=== PATIENT | female | born 1945 | race Caucasian/White ===

== ENCOUNTER 2017-04-02 15:42 | Inpatient (IN) | payer MEDICARE ==
[~2017-04-02] VITALS: Ht 144.8 cm; Wt 72.9 kg
[2017-04-02] VITALS (11 sets, daily range): BP systolic 121–199; BP diastolic 63–93; PULSE 51–99; RESP 16; TEMP 97.9–98.2; O2SAT 94–98
[~2017-04-02 15:42] MED LIST: ACYC400T PO; ALPR.5 PO; EPIP0.3I IM; GABA600T PO; HUMI40KI SQ; LEVO50TA4 PO; MILL5TAB PO; OLME1TAB PO; PARO40TA2 PO; PREDPOW34; PROT40TA PO
[2017-04-02] MEDS ORDERED: ASPIRIN 81 MG CHEW TAB PO STA (16:09)
[2017-04-02] MEDS ORDERED: SODIUM CHLOR 0.9% 1000 ML INJ 1,000 ML IV ONE (16:09)
[2017-04-02] MEDS ORDERED: HEPARIN SODIUM - IV 10,000 UNITS/10 ML VIAL IV PUSH STA (16:09)
[2017-04-02] MEDS ORDERED: NITROGLYCERIN 0.4 MG SL 25 TABS/BTL SL STA (16:09)
[2017-04-02] MEDS ORDERED: NITROGLYCERIN-D5W 50 MG/250 ML 250 ML IV PRN (16:15)
[2017-04-02] MEDS ORDERED: SODIUM CHLORIDE 0.9% FLUSH 10 ML FLUSH IVF PRN (16:15)
[2017-04-02 16:26] LABS: AUTOMATED NEUTROPHIL # 4.4 TH/MM3 (1.8-7.7); BASOPHIL % 0.5 % (0.0-2.0); EOSINOPHIL % 0.6 % (0.0-4.0); HEMATOCRIT 39.5 % (35.0-46.0); HEMO FLAGS DIFF FINAL; LYMPH % 21.8 % (9.0-44.0); LYMPHOCYTE # 1.3 TH/MM3 (1.0-4.8); MEAN CELL VOLUME 88.6 FL (80.0-100.0); MEAN CORPUSCULAR HEMOGLOBIN 28.5 PG (27.0-34.0); MEAN CORPUSCULAR HGB CONC 32.1 % (32.0-36.0); MONO % 5.9 % (0.0-8.0); NEUT % 71.2 % (16.0-70.0); PLATELET COUNT 205 TH/MM3 (150-450); RED BLOOD COUNT 4.46 MIL/MM3 (4.00-5.30); RED CELL DISTRIBUTION WIDTH 15.9 % (11.6-17.2); WHITE BLOOD COUNT 6.2 TH/MM3 (4.0-11.0)
[2017-04-02 16:27] LABS: I-STAT SODIUM 139 MMOL/L (138-146)
--- NOTE | 2017-04-02 16:27 | RADRPT ---
EXAM DATE/TIME: 04/02/2017 16:04 [place] COMPARISON: No previous studies available for comparison. INDICATIONS : Stemi alert. MEDICAL HISTORY : Chronic obstructive pulmonary disease. Hypertension Gastroesophageal reflux disease. SURGICAL HISTORY : Hysterectomy. ENCOUNTER: Initial ACUITY: 1 day PAIN SCORE: 7/10 LOCATION: Left upper chest FINDINGS: A single view of the chest demonstrates the lungs to be symmetrically aerated without evidence of mas s, infiltrate or effusion. The cardiomediastinal contours are unremarkable. Osseous structures are intact. CONCLUSION: Normal examination. Thom Haynes MD on April 02, 2017 at 16:25 Board Certified Radiologist. This report was verified electronically.
--- NOTE | 2017-04-02 16:29 | PD ---
HPI Chief Complaint: Chest Pain Time Seen by Provider: 15:55 Travel History International Travel<30 days: No Contact w/Intl Traveler<30days: No Traveled to known affect area: No History of Present Illness HPI This 71-year-old woman presents to the emergency department complaining of pressure-like chest discomfort. Symptoms been ongoing for the past 5 days or so. Symptoms are intermittent, worsening, and today were more severe and more constant. Describes pain as squeezing across her anterior chest. She denies any history of CAD. She sees Dr. Branch. She initially saw her for risk stratification presurgery. She states she has some shortness of breath with it. No nausea or vomiting. No other recent illness or injury. History Past Medical History Narrative Medical Asthma RA/OA Headache, migraines Hypothyroidism Tetanus Vaccination: Unknown Influenza Vaccination: Yes Social History Alcohol Use: Yes (OCCASIONALLY ) Tobacco Use: Yes Allergies-Medications (Allergen,Severity, Reaction): Coded Allergies: morphine (Unverified Allergy, Severe, RESP DISTRESS,SWELLING, 12/22/16) Reported Meds & Prescriptions Reported Meds & Active Scripts Active Benicar (Olmesartan) 20 Mg Tab 10 Mg PO DAILY Paroxetine (Paroxetine HCl) 40 Mg Tab 40 Mg PO DAILY Gabapentin 600 Mg Tab 600 Mg PO TID Acyclovir 400 Mg Tab 400 Mg PO 5 TIMES A DAY Levothyroxine (Levothyroxine Sodium) 50 Mcg Tab 50 Mcg PO DAILY Reported Xanax (Alprazolam) 0.5 Mg Tab 0.5 Mg PO Q8H PRN Millipred (Prednisolone) 5 Mg Tab 7 Mg PO Humira 2-Pack Inj (Adalimumab 2-Pack Inj) 40 Mg/0.8 Ml Syr 40 Mg SQ Q14D Humira 2-Pack Inj (Adalimumab 2-Pack Inj) 40 Mg/0.8 Ml Syr 40 Mg SQ Q7D Prednisolone (Prednisolone, Micronized) 5 Gm Powder 7 Mg DAILY Protonix (Pantoprazole Sodium) 40 Mg Tab 40 Mg PO BID Epipen 2-Isael Inj (Epinephrine) 0.3 Mg/0.3 Ml Pfpen 0.3 Mg IM ONCE PRN Review of Systems Except as stated in HPI: all other systems reviewed are Neg Physical Exam Narrative GENERAL: 71-year-old woman, uncomfortable and nontoxic. Hand on her chest. SKIN: Focused skin assessment warm/dry. ENT: No nasal bleeding or discharge. Mucous membranes pink and moist. NECK: Trachea midline. No JVD. CARDIOVASCULAR: Regular rate and rhythm. No murmur appreciated. RESPIRATORY: No accessory muscle use. Clear to auscultation. Breath sounds equal bilaterally. GASTROINTESTINAL: Abdomen soft, non-tender, nondistended. Hepatic and splenic margins not palpable. MUSCULOSKELETAL: No obvious deformities. No edema. NEUROLOGICAL: Awake and alert. No obvious cranial nerve deficits. Motor grossly within normal limits. Normal speech. PSYCHIATRIC: Appropriate mood and affect; insight and judgment normal. Data Data Last Documented VS Vital Signs Date Time Temp Pulse Resp B/P (MAP) Pulse Ox O2 Delivery O2 Flow Rate FiO2 04/02/17 17:45 76 16 121/68 (85) 98 Room Air 04/02/17 15:45 97.9 Orders Orders Troponin I (04/02/17 16:09) Ckmb (Isoenzyme) Profile (04/02/17 16:09) Complete Blood Count With Diff (04/02/17 16:09) I-Stat Profile (04/02/17 16:09) I-Stat Creatinine (04/02/17 16:09) Calcium (04/02/17 16:09) Magnesium (Mg) (04/02/17 16:09) Prothrombin Time / Inr (Pt) (04/02/17 16:09) Act Partial Throm Time (Ptt) (04/02/17 16:09) B-Type Natriuretic Peptide (04/02/17 16:09) Chest, Single Ap (04/02/17 16:09) Electrocardiogram (04/02/17 16:09) Oxygen Administration (04/02/17 16:09) Iv Access Insert/Monitor (04/02/17 16:09) Oximetry (04/02/17 16:09) Sodium Chlor 0.9% 1000 Ml Inj (Ns 1000 M (04/02/17 16:09) Sodium Chloride 0.9% Flush (Ns Flush) (04/02/17 16:15) Aspirin Chew (Aspirin Chew) (04/02/17 16:09) Nitroglycerin Sl (Nitrostat Sl) (04/02/17 16:09) Nitroglycerin-D5w 50 Mg/250 Ml (Nitrogly (04/02/17 16:15) Heparin Inj (Heparin Inj) (04/02/17 16:09) CKMB (04/02/17 16:05) CKMB% (04/02/17 16:05) Consult Cardiology (04/02/17 ) Admit Order (Ed Use Only) (04/02/17 ) Labs Laboratory Tests Test 04/02/17 16:05 White Blood Count 6.2 TH/MM3 Red Blood Count 4.46 MIL/MM3 Hemoglobin 12.7 GM/DL Bedside Hemoglobin 13.6 G/DL Hematocrit 39.5 % Bedside Hematocrit 40.0 % Mean Corpuscular Volume 88.6 FL Mean Corpuscular Hemoglobin 28.5 PG Mean Corpuscular Hemoglobin Concent 32.1 % Red Cell Distribution Width 15.9 % Platelet Count 205 TH/MM3 Mean Platelet Volume 8.3 FL Neutrophils (%) (Auto) 71.2 % Lymphocytes (%) (Auto) 21.8 % Monocytes (%) (Auto) 5.9 % Eosinophils (%) (Auto) 0.6 % Basophils (%) (Auto) 0.5 % Neutrophils # (Auto) 4.4 TH/MM3 Lymphocytes # (Auto) 1.3 TH/MM3 Monocytes # (Auto) 0.4 TH/MM3 Eosinophils # (Auto) 0.0 TH/MM3 Basophils # (Auto) 0.0 TH/MM3 CBC Comment DIFF FINAL Differential Comment Prothrombin Time 10.5 SEC Prothromb Time International Ratio 1.0 RATIO Activated Partial Thromboplast Time 25.4 SEC Bedside Sodium 139 MMOL/L Bedside Potassium 4.0 MMOL/L Bedside Chloride 100 MMOL/L Bedside Blood Urea Nitrogen 13 MG/DL Bedside Creatinine 1.0 MG/DL Bedside Glucose 142 MG/DL Calcium Level 8.3 MG/DL Magnesium Level 2.2 MG/DL Total Creatine Kinase 103 U/L Creatine Kinase MB 3.2 NG/ML Troponin I 0.79 NG/ML B-Type Natriuretic Peptide 307 PG/ML [facility] Medical Decision Making Medical Screen Exam Complete: Yes Emergency Medical Condition: Yes Interpretation(s) My review of EKG: Minimal ST elevations in the inferior leads, but 1 mm in lead 3, less in aVF, what appear to be reciprocal depressions in 1 and aVL with T- wave inversions and mild ST depressions, as well as lateral T wave inversions in the precordial leads. My review of repeat EKG, 1621, no significant change. May be slightly diminished ST elevations, LABS: CBC unremarkable. Clinic your chemistries are unremarkable. Troponin 0.79 BNP is 307 Coags unremarkable. Chest x-ray: Normal examination. Differential Diagnosis MT, ACS, dissection, PE, anxiety, other Narrative Course Medical decision making INITIAL: This 71-year-old woman presents to the emergency department complaining of intermittent pressure-like chest discomfort for the past 5 days, ongoing worsens this morning. EKG is suggestive of myocardial ischemia with ST elevations inferiorly, lateral ST depressions with T-wave inversions that could be reciprocal changes. STEMI alert was called at 1600 on my viewing EKG. Spoke with Dr. Johnson. As requested, I I sent copies of EKG for him to review. Feels EKG changes are somewhat equivocal and would like a repeat EKG. Given the worsening elevations in 3 compared aVF, will do right sided EKG as well. We 'll start aspirin, nitroglycerin, heparin, reassess. FINAL: Repeat EKG shows no worsening evidence of STEMI. Spoke with cardiology. EKG does not meet criteria for STEMI activation. We'll treat medical management for acute coronary syndrome, continue to monitor, repeat enzymes, repeat EKG, admission to the [facility]. Critical Care Narrative Aggregate critical care time was 35 minutes. Time to perform other separately billable procedures was not included in the critical care time. My time did not include minutes spent treating any other patients simultaneously or on activities that did not directly contribute to the patient's treatment. The services I provided to this patient were to treat and/or prevent clinically significant deterioration that could result in: , MT, heart failure, severe morbidity. I provided critical care services requiring my management, as noted below: Chart data review, documentation time, medication orders and management, vital sign assessments/reviewing monitor data, ordering and reviewing lab tests, ordering and interpreting/reviewing x-rays and diagnostic studies, care of the patient and discussion of the patient with the admitting physicians. Diagnosis Primary Impression: ACS (acute coronary syndrome) Admitting Information Admitting Physician Requests: Admit Thom Ortiz MD Apr 02, 2017 16:29
[2017-04-02 16:35] LABS: APTT (PATIENT) 25.4 SEC (24.3-30.1); PROTHROMBIN TIME - PATIENT 10.5 SEC (9.8-11.6)
[2017-04-02 17:08] LABS: MAGNESIUM 2.2 MG/DL (1.5-2.5)
[2017-04-02 17:33] LABS: CREATINE KINASE 103 U/L (26-192)
[2017-04-02 17:49] LABS: CKMB 3.2 NG/ML (0.5-3.6)
[2017-04-02] MEDS ORDERED: MAGNESIUM HYDROXIDE SUSP 30 ML CUP PO PRN (18:15)
[2017-04-02] MEDS ORDERED: SENNOSIDES 8.6 MG TAB PO PRN (18:15)
[2017-04-02] MEDS ORDERED: NALOXONE HCL 0.4 MG/ML AMP IV PUSH PRN (18:15)
[2017-04-02] MEDS ORDERED: HEPARIN-D5W 25,000 U/250 ML 250 ML IV PRN ×2 (18:15→20:00)
[2017-04-02] MEDS ORDERED: BISACODYL 10 MG SUPP RECTAL PRN (18:15)
[2017-04-02] MEDS ORDERED: LACTULOSE SYRUP 20 GM/30 ML CUP PO PRN (18:15)
[2017-04-02] MEDS ORDERED: SODIUM CHLORIDE 0.9% FLUSH 10 ML FLUSH IV FLUSH PRN (18:15)
[2017-04-02] MEDS ORDERED: predniSONE 10 MG TAB PO ONE (19:00)
--- NOTE | 2017-04-02 19:03 | HHI.HP ---
[facility] Service [facility] Primary Care Physician Janelle Medrano MD Admission Diagnosis ACS/DE Diagnoses: (1) NSTEMI (non-ST elevated myocardial infarction) Diagnosis: Principal (2) HTN (hypertension) Diagnosis: Principal (3) Hyperglycemia Diagnosis: Principal (4) Rheumatoid arthritis Diagnosis: Principal (5) Tobacco abuse Diagnosis: Principal Travel History International Travel<30 Days: No Contact w/Intl Traveler <30 Da: No Traveled to Known Affected Are: No History of Present Illness This is a 71-year-old female with a PMH of HTN, Hypothyroidism, Asthma and Rheumatoid Arthritis on Chronic Steroids who presented to the ER w/ c/o chest pain for approx 4-5 days. States pain has been intermittent, however today pain more constant. Following w/ Dr. Branch as outpatient. Denies fever, chills, cough or SOB. On arrival, BP 199/93, HR 99, O2 sat 96% on RA, Afebrile. CBC unremarkable. Chemistry essentially unremarkable except for hyperglycemia, BS 142. Troponin 0.79. EKG with no acute ischemia. BNP 307. INR 1.0. CXR with no acute findings. Dr. Johnson consulted by ER physician, pt started on Heparin/NTG gtt in ER. Plan for Cath in am if chest pain persists. Review of Systems Except as stated in HPI: all other systems reviewed are Neg ROS: 14 point review of systems otherwise negative. Past Family Social History Past Medical History PMH: HTN, Hypothyroidism, Asthma and Rheumatoid Arthritis on Chronic Steroids Past Surgical History PAST SURGICAL HISTORY: Sinus Surgery, Craniotomy, Partial Colectomy, Hernia Repair, Hysterectomy with Left Knee Arthroscopy, Bladder Surgery, Right Elbow Surgery Allergies: Coded Allergies: morphine (Unverified Allergy, Severe, RESP DISTRESS,SWELLING, 12/22/16) Family History PAST FAMILY HISTORY: Reviewed, positive for DM and CAD. Social History PAST SOCIAL HISTORY: Occasional alcohol. Positive for tobacco. [place] for drugs. Physical Exam Vital Signs Vital Signs Date Time Temp Pulse Resp B/P (MAP) Pulse Ox O2 Delivery O2 Flow Rate FiO2 04/02/17 17:45 76 16 121/68 (85) 98 Room Air 04/02/17 17:15 83 16 141/65 (90) 98 Room Air 04/02/17 16:45 77 16 133/63 (86) 98 Room Air 04/02/17 16:30 90 180/78 04/02/17 16:15 78 16 145/67 (93) 97 Room Air 04/02/17 16:00 98 Room Air 04/02/17 16:00 98 Room Air 04/02/17 15:52 90 18 96 Room Air 04/02/17 15:45 97.9 99 16 199/93 (128) 96 Physical Exam PE: GENERAL: Pleasant elderly white female in no acute distress. HEENT: PERRLA, EOMI. No scleral icterus or conjunctival pallor. No lid lag or facial droop. CARDIOVASCULAR: Regular rate and rhythm. No obvious murmurs to auscultation. No chest tenderness to palpation. RESPIRATORY: No obvious rhonchi or wheezing. Clear to auscultation. Breath sounds equal bilaterally. GASTROINTESTINAL: Abdomen soft, non-tender, nondistended. BS normal. MUSCULOSKELETAL: Extremities without clubbing, cyanosis, or edema. No obvious deformities. NEUROLOGICAL: Awake, alert and oriented x4. No focal neurologic deficits. Moving both upper and lower extremities spontaneously. Laboratory Laboratory Tests Test 04/02/17 16:05 White Blood Count 6.2 Red Blood Count 4.46 Hemoglobin 12.7 Bedside Hemoglobin 13.6 Hematocrit 39.5 Bedside Hematocrit 40.0 Mean Corpuscular Volume 88.6 Mean Corpuscular Hemoglobin 28.5 Mean Corpuscular Hemoglobin Concent 32.1 Red Cell Distribution Width 15.9 Platelet Count 205 Mean Platelet Volume 8.3 Neutrophils (%) (Auto) 71.2 Lymphocytes (%) (Auto) 21.8 Monocytes (%) (Auto) 5.9 Eosinophils (%) (Auto) 0.6 Basophils (%) (Auto) 0.5 Neutrophils # (Auto) 4.4 Lymphocytes # (Auto) 1.3 Monocytes # (Auto) 0.4 Eosinophils # (Auto) 0.0 Basophils # (Auto) 0.0 CBC Comment DIFF FINAL Differential Comment Prothrombin Time 10.5 Prothromb Time International Ratio 1.0 Activated Partial Thromboplast Time 25.4 Bedside Sodium 139 Bedside Potassium 4.0 Bedside Chloride 100 Bedside Blood Urea Nitrogen 13 Bedside Creatinine 1.0 Bedside Glucose 142 Calcium Level 8.3 Magnesium Level 2.2 Total Creatine Kinase 103 Creatine Kinase MB 3.2 Troponin I 0.79 B-Type Natriuretic Peptide 307 Result Diagram: 04/02/17 1605 Caprini VTE Risk Assessment Caprini VTE Risk Assessment: Mod/High Risk (score >= 2) Caprini Risk Assessment Model Point Value = 1 Point Value = 2 Point Value = 3 Point Value = 5 Age 41-60 Minor surgery BMI > 25 kg/m2 Swollen legs Varicose veins or History of unexplained or recurrent spontaneous Oral contraceptives or hormone replacement Sepsis (< 1 month) Serious lung disease, including pneumonia (< 1 month) Abnormal pulmonary function Acute myocardial infarction Congestive heart failure (< 1 month) History of inflammatory bowel disease Medical patient at bed rest Age 61-74 Arthroscopic surgery Major open surgery (> 45 min) Laparoscopic surgery (> 45 min) Malignancy Confined to bed (> 72 hours) Immobilizing plaster cast Central venous access Age >= 75 History of VTE Family history of VTE Factor V Leiden Prothrombin [id number] Lupus anticoagulant Anticardiolipin antibodies Elevated serum homocysteine Heparin-induced thrombocytopenia Other congenital or acquired thrombophilia Stroke (< 1 month) Elective arthroplasty Hip, pelvis, or leg fracture Acute spinal cord injury (< 1 month) Prophylaxis Regimen Total Risk Factor Score Risk Level Prophylaxis Regimen 0-1 Low Early ambulation 2 Moderate Order ONE of the following: *Sequential Compression Device (SCD) *Heparin 5000 units SQ BID 3-4 Higher Order ONE of the following medications: *Heparin 5000 units SQ TID *Enoxaparin/Lovenox 40 mg SQ daily (WT < 150 kg, CrCl > 30 mL/min) *Enoxaparin/Lovenox 30 mg SQ daily (WT < 150 kg, CrCl > 10-29 mL/min) *Enoxaparin/Lovenox 30 mg SQ BID (WT < 150 kg, CrCl > 30 mL/min) AND/OR *Sequential Compression Device (SCD) 5 or more Highest Order ONE of the following medications: *Heparin 5000 units SQ TID (Preferred with Epidurals) *Enoxaparin/Lovenox 40 mg SQ daily (WT < 150 kg, CrCl > 30 mL/min) *Enoxaparin/Lovenox 30 mg SQ daily (WT < 150 kg, CrCl > 10-29 mL/min) *Enoxaparin/Lovenox 30 mg SQ BID (WT < 150 kg, CrCl > 30 mL/min) AND *Sequential Compression Device (SCD) Assessment and Plan Problem List: (1) NSTEMI (non-ST elevated myocardial infarction) ICD Code: I21.4 - Non-ST elevation (NSTEMI) myocardial infarction (2) HTN (hypertension) ICD Code: I10 - Essential (primary) hypertension (3) Hyperglycemia ICD Code: R73.9 - Hyperglycemia, unspecified (4) Rheumatoid arthritis ICD Code: M06.9 - Rheumatoid arthritis, unspecified (5) Tobacco abuse ICD Code: Z72.0 - Tobacco use Assessment and Plan A/P: 1. NSTEMI: chest pain x4-5 days, now constant, some improvement w/ NTG. Trop 0.79, EKG w/ no acute ischemia. Follows w/ Dr. Branch as outpatient, Dr. Johnson consulted, recommended Heparin/NTG gtt, likely Cath in am. Check serial cardiac enzymes, ASA, Metoprolol, Statin. Continue NTG/Heparin gtt. CXR w/ no acute findings, images reviewed by me. 2. Hyperglycemia: BS 142, on chronic steroids. Check Hgb A1c, start Insulin Sliding Scale w/ Accu-Cheks. 3. HTN: BP 199 systolic on arrival, likely compounded by chest pain, currently 121/68, HR 76. Will monitor. Start Metoprolol. 4. Rheumatoid Arthritis: Chronic. On Chronic Steroid therapy, continue home medications, monitor BS as above. 5. Tobacco Abuse: Pt counselled. Ativan prn, no NicoDerm to avoid vasoconstriction. 6. DVT Prophylaxis: Heparin gtt 7. Social work for d/c planning as needed. 8. Case discussed w/ ER physician at length. Physician Certification 2 Midnight Certification Type: Admission for Inpatient Services Order for Inpatient Services The services are ordered in accordance with Medicare regulations or non- Medicare payer requirements, as applicable. In the case of services not specified as inpatient-only, they are appropriately provided as inpatient services in accordance with the 2-midnight benchmark. Estimated LOS (days): 2 days is the estimated time the patient will need to remain in the hospital, assuming treatment plan goals are met and no additional complications. Post-Hospital Plan: Not yet determined Britany Ga MD Apr 02, 2017 19:03
[2017-04-02] MEDS ORDERED: ONDANSETRON HCL 4 MG/2 ML VIAL IVP PRN (19:45)
[2017-04-02] MEDS ORDERED: ACETAMINOPHEN 325 MG TAB PO PRN (19:45)
[2017-04-02] MEDS ORDERED: HYDROmorphone HCL PF 1 MG/ML VIAL IV PUSH PRN (19:45)
[2017-04-02] MEDS ORDERED: GLUCAGON 1 MG/ML VIAL OTHER PRN (20:00)
[2017-04-02] MEDS ORDERED: DEXTROSE 50% IN WATER 50 ML VIAL(D50) IV PUSH PRN (20:00)
[2017-04-02] MEDS: ACETAMINOPHEN/HYDROcodone 325 MG/5 MG TAB PO PRN (20:53)
[2017-04-02] MEDS: ALPRAZolam 0.5 MG TAB PO PRN (20:54)
[2017-04-02] MEDS: DOCUSATE SODIUM 50 MG/SENNA 8.6 MG TAB PO SCH (20:54)
[2017-04-02] MEDS: PANTOPRAZOLE SOD 40 MG DELAYED RELEASE TAB PO SCH (20:54)
[2017-04-02] MEDS: INSULIN ASPART SUPPLEMENTAL SCALE SQ SCH (21:00)
[2017-04-02] MEDS: SODIUM CHLORIDE 0.9% FLUSH 10 ML FLUSH IV FLUSH SCH (21:00)
[2017-04-02] MEDS: METOPROLOL TARTRATE 25 MG TAB PO SCH (21:22)
--- NOTE | 2017-04-02 21:33 | MB ---
cc: DOROTHY MITCHELL DATE OF CONSULTATION 04/02/17 1943 REASON FOR CONSULTATION Chest pain. HISTORY OF PRESENT ILLNESS 71-year-old female with a past medical history significant for CAD, hypertension , hypothyroidism, rheumatoid arthritis that presents to the emergency department for evaluation of chest pain. She reports that she has been having chest pressure since Wednesday. However, she was hesitant to present to the PCP's office however, today this morning while in the bathroom she had an acute onset of chest pressure localizing to the sternal region, nonradiating that was not relieved by aspirin for which she asked her to take her to the emergency department. In the emergency department, EKG revealed sinus rhythm with T-wave inversions in the lateral leads and troponin came up elevated at 0.79. The patient was started on a heparin drip and nitro and she was admitted to the PCCU for further management and evaluation. Currently, she remains chest pain free. Denies nausea, vomiting, diarrhea, shortness of breath, PND, diaphoresis or leg edema, palpitations or syncope. She has been followed by Dr. Branch. Before Dr. Branch, she was followed by Dr. Murry who performed in 2015 a stress test which showed a reversible defect in the lateral wall with a preserved ejection fraction of 60%. At that time, the patient refused a coronary angiogram. On subsequent visits with Dr. Branch per notes, the patient continues refusing any type of invasive cardiac workup. REVIEW OF SYSTEMS Negative except for what is mentioned in HPI. PAST MEDICAL HISTORY 1. CAD with positive stress test in 2015, 2. Asthma 3. Rheumatoid arthritis 4. Headache, 5. Migraines, 6. Hypothyroidism, 7. Hypertension, PAST SURGICAL HISTORY None SOCIAL HISTORY Occasional alcohol use. Denies illicit drug use. Positive smoker. FAMILY HISTORY Positive for CAD MEDICATIONS Home medications 1. Acyclovir 2. Humira. 3. Xanax, 4. Neurontin 5. Levothyroxine. 6. Benicar 7. Protonix, 8. Paroxetine. 9. Prednisolone. PHYSICAL EXAMINATION VITAL SIGNS: Temperature 97.9, heart rate 76, respiratory rate 16, blood pressure 121/68, O2 sat 98% room air. GENERAL: She is awake, alert, oriented x3 in no acute distress. NECK: No JVD, no carotid bruits. HEART: Regular rate and rhythm. No murmurs, rubs or gallops appreciated. LUNGS: Clear to auscultation bilaterally. No wheezes or rhonchi or rales. ABDOMEN: Obese. Positive bowel sounds, soft, nontender, nondistended. EXTREMITIES: No cyanosis or edema. Pulses throughout. LABORATORY DATA CBC - hemoglobin 12, hematocrit 39, platelet count 205, INR 1.0. Electrolytes - sodium 139, potassium 4.0, BUN 13, creatinine 1.0, calcium 8.3, magnesium 2.2, troponin 0.79. BNP 307. IMAGING STUDIES Chest x-ray - no acute cardiopulmonary process. CARDIOLOGY STUDIES EKG - sinus rhythm with T-wave inversions in the lateral leads. ASSESSMENT/PLAN 71-year-old female with known coronary artery disease, however, no invasive cardiac workup admitted today with a [id number] MD. Currently, she remains afebrile, hemodynamically stable and chest pain free. She has been started on heparin drip and nitro drip with relief of symptoms. EKGs showed no ST elevation MD rather T-wave inversion. Her JAMEE risk score is 4 and Killip class I. At this point, I think it would be reasonable to pursue left heart cath to better assess progression of coronary artery disease. After a thorough explanation including risks of left heart cath/PCI including but not limited to neurovascular trauma, acute kidney injury, bleeding, infection, stroke, arrhythmia, emergent bypass surgery, and she agrees to have it done. The patient understands risks and she is willing to proceed. Plan: -Keep NPO after midnight -Left heart cath possible PCI in AM -Cont Heparin drip -Aggressive medical management for CAD Thank you for the opportunity to take part in the care of this patient. Further management to be determined. Dorothy Mitchell MD, MPH, [facility]/SA /8:54 PM /9:20 PM ALEM
[2017-04-02 22:05] LABS: HEMATOCRIT 34.6 % (35.0-46.0); MEAN CELL VOLUME 88.8 FL (80.0-100.0); MEAN CORPUSCULAR HEMOGLOBIN 28.5 PG (27.0-34.0); MEAN CORPUSCULAR HGB CONC 32.1 % (32.0-36.0); PLATELET COUNT 184 TH/MM3 (150-450); RED BLOOD COUNT 3.89 MIL/MM3 (4.00-5.30); RED CELL DISTRIBUTION WIDTH 15.8 % (11.6-17.2); REVIEW FLAG FINAL; WHITE BLOOD COUNT 6.9 TH/MM3 (4.0-11.0)
[2017-04-03] VITALS (29 sets, daily range): BP systolic 118–170; BP diastolic 59–80; PULSE 47–77; RESP 16–20; TEMP 97.6–98.1; O2SAT 95–99
[2017-04-03] MEDS: ACETAMINOPHEN/HYDROcodone 325 MG/5 MG TAB PO PRN ×5 (00:53→20:45)
[2017-04-03 01:05] LABS: APTT (PATIENT) 36.5 SEC (24.3-30.1)
[2017-04-03] MEDS: ALPRAZolam 0.5 MG TAB PO PRN ×3 (04:45→21:24)
[2017-04-03] MEDS ORDERED: HEPARIN-NS/PF INJ 1,000 ML ONE (07:11)
[2017-04-03] MEDS ORDERED: IOHEXOL 350 MG/ML 100 ML BTL (for Cath Lab) OTHER ONE (07:14)
[2017-04-03] MEDS ORDERED: MIDAZOLAM HCL 2 MG/2 ML VIAL ONE (07:26)
[2017-04-03 07:38] LABS: AUTOMATED NEUTROPHIL # 3.4 TH/MM3 (1.8-7.7); BASOPHIL % 0.6 % (0.0-2.0); EOSINOPHIL # 0.1 TH/MM3 (0-0.4); EOSINOPHIL % 1.7 % (0.0-4.0); HEMATOCRIT 33.9 % (35.0-46.0); HEMO FLAGS DIFF FINAL; LYMPH % 40.8 % (9.0-44.0); LYMPHOCYTE # 2.8 TH/MM3 (1.0-4.8); MEAN CELL VOLUME 88.2 FL (80.0-100.0); MEAN CORPUSCULAR HGB CONC 32.8 % (32.0-36.0); MONO % 7.4 % (0.0-8.0); NEUT % 49.5 % (16.0-70.0); PLATELET COUNT 170 TH/MM3 (150-450); RED BLOOD COUNT 3.84 MIL/MM3 (4.00-5.30); WHITE BLOOD COUNT 6.8 TH/MM3 (4.0-11.0)
[2017-04-03 07:46] LABS: APTT (PATIENT) 43.1 SEC (24.3-30.1)
[2017-04-03 07:58] LABS: ANION GAP 6 MEQ/L (5-15); BICARBONATE 28.3 MEQ/L (21.0-32.0); BLOOD UREA NITROGEN 16 MG/DL (7-18); CHLORIDE 103 MEQ/L (98-107); GLOMERULAR FILTRATION RATE 71 ML/MIN (>89); POTASSIUM 3.6 MEQ/L (3.5-5.1); SODIUM (NA) 137 MEQ/L (136-145)
[2017-04-03] MEDS: INSULIN ASPART SUPPLEMENTAL SCALE SQ SCH ×4 (08:00→20:46)
[2017-04-03] MEDS ORDERED: PRASUGREL 10 MG TAB ONE (08:11)
[2017-04-03] MEDS ORDERED: SODIUM CHLOR 0.9% 1000 ML INJ 1,000 ML IV SCH (08:24)
--- NOTE | 2017-04-03 08:24 | CATHPROC ---
[facility] HIS Report Study Information Study Number Admission Scheduled Start Study Start [id number] Apr 02 2017 6:11PM 04/03/2017 Apr 03 2017 6:53AM [place] [facility] Cardiac Catheterization Admit Source Facility Department Emergency department [facility] - Teletype Technician Physician and Clinical Staff Initial Manohar Caldwell RN, Gisella Brady RN Recorder Arcelia Alberto,RT(R) Scrub Francis Villarreal,RT(R) Procedures Performed Procedure Location (Site) Vessel Name Coronary Angiograms LCA Left Coronary Coronary Angiograms RCA Right Coronary Drug Eluting Inflatio CIRC Mid CIRC L Heart Cath LV Gram-hand inj. LV LV Ventricle PTCA CIRC Mid CIRC Wire insertion Fem Art (right) Femoral Art Equipment Time Band Booker Description Size Mfg Part Number Used/Scraped COPILOT VALVE, BLEEDBACK [id number] 07:57 [employer] Used CONTROL *[id number] PERCLOSE, PRO GLIDE CLOSER 08:10 [employer] FR 6 [id number] *[id number] Used DEVICE TRANSDUCER, TRUWAVE [id number] 07:07 [employer] One * Used W/STOCKCOCK *[id number] INTRODUCER SET, 07:07 [employer] FR 5 [id number] *[id number] Used MICROPUNCTURE, STIFFENED [id number] *[id number] 07:07 [employer] PACK, CCL CUSTOM * Used *[id number] BALLOON, 3.0 X 15MM NC [id number] 08:04 [employer] 15MM Used EUPHORA *[id number] 07:35 [employer] JL 4.0 DXTERITY CATHETER FR 5 [id number] Used [id number] 08:04 [employer] STENT, 2.75 22MM MARQUIS 2.75 22MM Used *[id number] 07:57 [employer]/AVE EBU 3.5 Z2 GUIDE CATHETER FR 6 Used *[id number] 08:04 [employer] 30 MALAIKA INDEFLATOR Used *[id number] 07:07 [employer] WIRE, 3MMJ .035 180CM 180CM Used *[id number] 07:07 NAMIC MANIFOLD, 4 PORT * Used *[id number] 07:07 [employer] OMNIPAQUE, 350 MG, 150ML 150ML [id number] Used [id number] 07:07 [facility] BLANKET,WARM AIR CCL * Used *[id number] 07:07 [employer] SHEATH, FR5 TERUMO (10CM) FR 5 Used *[id number] [id number] 07:56 [employer] SHEATH, FR6 TERUMO (10CM) FR 6 Used *[id number] WIRE, RUNTHROUGH NS FLOPPY [id number] 07:58 [employer]ICAL 180CM Used .014 180CM *[id number] Equipment Model, Serial, Lot Number and Expiration Data Description Model Number Serial Number Lot Number Expiration Date JL 4.0 DXTERITY CATHETER [id number] 01-27-2020 STENT, 2.75 22MM MARQUIS [id number] 11-10-2018 History: Current Medications Medication Dosage/Unit Route Frequency Last Date/Time Taken ASA LIPITOR Xanax PREDNISONE Neurontin History: Allergies Allergy Reaction morphine RESP DISTRESS,SWELLING History: Risk Factors Family History of Hypertension Dyslipidemia Previous LA Previous Heart Failure Premature CAD Yes No No No No Prior Valve Prior PCI Prior CABG Surgery No No No Cerebrovascular Peripheral Artery Chronic Lung On Dialysis Diabetes Disease Disease Disease No No No Yes No History: Symptoms/Diagnosis Selection Items Chest pain History: Stress Tests Stress or Imaging Studies Performed No History: Other Disease Selection Items CAD HTN History: Other Current Smoker Method Quit Packs a Day Years Used Pack Years No Cigarettes 1 Years Ago 1 25 25 Labs Hgb (g/dl) Hct (%) WBC (l/cumm) Platelets (thousands) 11.60-17.00 35.00-51.00 4.00-11.00 150.00-450.00 11.1 34.6 6.9 184 Glucose (mg/dl) BUN (mg/dl) Creatinine (mg/dl) BUN:Creatinine (1:x) 74.00-106.00 7.00-18.00 0.50-1.30 10.00-20.00 142 13 1.0 13 Na (meq/l) K (meq/l) 136.00-145.00 3.50-5.10 139 4 INR (PTT:PT) 0.90-1.10 1 Troponin I (ng/ml) 0.02-0.05 2.7 Medication Medication Total Dose (Bolus/Oral) Medication Total Dosage/Unit 1% XYLOCAINE 20 mL EFFIENT 60 mg FENTANYL 100 mcg HEPARIN 5000 units NTG (IC) 400 mcg VERSED 2 mg Medications (Bolus/Oral) Medication Time Given Dosage/Unit Administered By Reason FENTANYL 04/03/2017 7:47:50 AM 50 mcg Hitesh Steel RN 50 mcg FENTANYL given in lab by Hitesh Steel RN in Right Hand via Peripheral IV. Ordered by Manohar Rodriguez. VERSED 04/03/2017 7:48:06 AM 2 mg Hitesh Steel RN 2 mg VERSED given in lab by Hitesh Steel RN in Right Hand via Peripheral IV. Ordered by Vania Desai. 1% XYLOCAINE 04/03/2017 7:49:31 AM 20 mL Manohar Desai 20 mL 1% XYLOCAINE given in lab by Manohar Desai in Right Groin via Subcutaneous. HEPARIN 04/03/2017 7:57:30 AM 5000 units Hitesh Steel RN 5000 units HEPARIN given in lab by Hitesh Steel RN in Right Hand via Peripheral IV. Ordered by Manohar Brannon. FENTANYL 04/03/2017 8:01:25 AM 50 mcg Hitesh Steel RN 50 mcg FENTANYL given in lab by Hitesh Steel RN in Right Hand via Peripheral IV. Ordered by Manohar Rodriguez. NTG (IC) 04/03/2017 8:07:51 AM 400 mcg Manohar Desai 400 mcg NTG (IC) given in lab by Manohar Desai via Intra-coronary. EFFIENT 04/03/2017 8:14:01 AM 60 mg Hitesh Steel RN 60 mg EFFIENT given in lab by Hitesh Steel RN via Oral. Ordered by Manohar Desai. Medication (Drip) Medication Time Given Dosage/Unit Concentration/Unit Diluent (ml) Solution IV Solutions 04/03/2017 7:19:16 AM 50 mL (IV) NaCl .9 IV Solutions given in lab by Hitesh Steel RN in Right Hand via Peripheral IV. Pump/Drip Flow using Na Cl .9. Initial Case Assessment Cardiovascular HR Rhythm NIBP Chest Pain 66 SR 166/77 0 Skin color Skin Normal Warm Dry Circulatory - Right Pulses Dorsalis Pedis Femoral 2 2 Scale (0,1,2,3,4,d) Circulatory - Left Pulses Dorsalis Pedis Femoral 2 2 Scale (0,1,2,3,4,d) Neurological State Oriented to time-place- Alert Moves all extremities person Respiration - General Respiration Rate SpO2 (%) (B/min) 17 98 Chronological Log Time Study Chronological Log 7:14:34 Patient arrived via Bed. 7:18:40 Patient Name, D.O.B, / Armband Verified By R.N. 7:18:41 Consent signed by the physician and the patient and verified by the Teletype Technician staff. 7:18:42 Pre-op and post- op instructions given; patient acknowledges understanding of instructions. 7:18:42 Verbal Stimulation=2 Physical Stimulation=2 Airway=2 Respiration=2 TOTAL=8. (0=absent, 1=li mited, 2=present) 7:18:53 Patient has been NPO for More than 6Hrs. 7:18:54 Skin Breakdown- none per pt 7:18:57 Patient Warmer Placed on the Table. 7:19:00 Rachel Prominences Protected 7:19:07 A # 18 IV was noted in the Hand (right). Grade = 0 7:19:16 IV Solutions given in lab by Hitesh Steel RN in Right Hand via Peripheral IV. Pump/Drip Seferino w using NaCl .9. 7:19:31 History and physical on the chart or being dictated. Assessment: Initial Case, HR=66 BPM, Rhythm=SR, CCRP=613/77 mmhg, Chest Pain=0, Color=Normal, Skin = Warm, Dry Right Pulses: Jadiel Ped=2, Femoral=2 7:19:34 Left Pulses: Jadiel Ped=2, Femoral=2 Neurological: State=Alert, Ox3, WEBB Respiration: Resp=17 B/min, SpO2=98 % Vitals capture started with the following parameters, Patient=Adult, Interval=5 min, Initial P hgtjedr=398 mmHg, 7:19:36 Deflation Rate=5 mmHg, Cuff placed on Left Arm 7:19:49 Reference ECG taken 7:20:52 HR=56 bpm, IGJL=421/77 mmhg, SpO2=98 %, Resp=15 B/min 7:25:23 HR=62 bpm, DSNQ=841/79 mmhg, SpO2=99.0 %, Resp=12 B/min 7:26:28 Bilateral groins prepped with 2% chlorhexidine, and draped after a 3 minute waiting time. 7:30:20 HR=56 bpm, NRXF=720/79 mmhg, VmA1=570.0 %, Resp=11 B/min 7:30:23 Pressure channel 1 zeroed. 7:30:30 paged 7:35:19 HR=55 bpm, JXVD=737/78 mmhg, SpO2=98.0 %, Resp=11 B/min 7:40:20 HR=61 bpm, UKML=673/74 mmhg, SpO2=98.0 %, Resp=15 B/min 7:45:19 HR=59 bpm, YOMB=249/79 mmhg, SpO2=98.0 %, Resp=13 B/min 7:46:19 MD arrived. 7:47:50 50 mcg FENTANYL given in lab by Hitesh Steel RN in Right Hand via Peripheral IV. Ordered by Manohar Desai. 7:48:06 2 mg VERSED given in lab by Hitesh Steel RN in Right Hand via Peripheral IV. Ordered by Manohar Clifford. Time Out. Correct patient, correct procedure, correct physician, power injector loaded, or not l oaded with contrast with 7:48:12 surgical team present. Time Out Concurred by MD and individual staff in procedure. 7:49:25 Case Start 7:49:31 20 mL 1% XYLOCAINE given in lab by Manohar Desai in Right Groin via Subcutaneous. 7:50:04 Access site was Right Femoral Artery. A INTRODUCER SET, MICROPUNCTURE, STIFFENED FR 5 was advanced into the Fem Art (right) using the 7:50:13 Percutaneous technique. 7:50:18 HR=57 bpm, UFCM=859/82 mmhg, MhZ3=763.0 %, Resp=10 B/min 7:50:20 A SHEATH, FR5 TERUMO (10CM) FR 5 was advanced into the Fem Art (right) using the Yaaou s technique. 7:51:22 An injection in the Fem Art (right) was made through the SHEATH, FR5 TERUMO (10CM) FR 5. A JR 4.0 INFINITI CATHETER FR 5 was advanced over a wire. OMNIPAQUE, 350 MG, 150ML 150ML was use d for 7:51:46 injections. Recorded Pressure: LV, HR=62, Condition=Condition 1 7:52:41 (Left Ventricle) LV 154/7/16 7:53:13 The LV was manually injected with 8 cc's and visualized. OMNIPAQUE, 350 MG, 150ML 150ML used . Recorded Pressure: LV, Ao, HR=61, Condition=Condition 1 7:53:32 (Left Ventricle) LV 146/11/17, (Aorta) Ao 144/70/100 7:54:01 The RCA was injected and visualized at various angles. OMNIPAQUE, 350 MG, 150ML 150ML used. Recorded Pressure: Ao, HR=66, Condition=Condition 1 7:54:11 (Aorta) Ao 144/70/100 7:54:29 Catheter was removed A JL 4.0 DXTERITY CATHETER FR 5 was advanced over a wire. OMNIPAQUE, 350 MG, 150ML 150ML was use d for 7:54:42 injections. 7:55:19 HR=69 bpm, MLXC=177/85 mmhg, SpO2=92.0 %, Resp=16 B/min 7:55:22 The LCA was injected and visualized at various angles. OMNIPAQUE, 350 MG, 150ML 150ML used. A SHEATH, FR6 TERUMO (10CM) FR 6 was exchanged in the Fem Art (right). This was necessary in ord er to 7:57:14 accomodate a larger catheter. 7:57:30 5000 units HEPARIN given in lab by Hitesh Steel RN in Right Hand via Peripheral IV. Ordered by Manohar Desai. A EBU 3.5 Z2 GUIDE CATHETER FR 6 was advanced over a wire. OMNIPAQUE, 350 MG, 150ML 150ML was us ed for 7:59:11 injections. 8:00:55 HR=78 bpm, FWDO=459/104 mmhg, SpO2=96.0 %, Resp=24 B/min 8:01:25 50 mcg FENTANYL given in lab by Hitesh Steel RN in Right Hand via Peripheral IV. Ordered by Manohar Desai. 8:01:41 A wire was inserted via Fem Art (right). 8:01:52 A WIRE, RUNTHROUGH NS FLOPPY .014 180CM 180CM was inserted via Fem Art (right). 8:03:07 Interventional wire has crossed the lesion A STENT, 2.75 22MM MARQUIS 2.75 22MM was advanced through a EBU 3.5 Z2 GUIDE CATHETER FR 6 over a WIRE, 8:03:27 RUNTHROUGH NS FLOPPY .014 180CM 180CM. A STENT, 2.75 22MM MARQUIS 2.75 22MM was deployed using a 30 MALAIKA INDEFLATOR at 12 atmospheres for 7 seconds in 8:04:12 the CIRC Mid. 8:04:35 Delivery device removed A BALLOON, 3.0 X 15MM NC EUPHORA 15MM was inserted over WIRE, RUNTHROUGH NS FLOPPY .014 180CM 1 80CM 8:05:13 via the Fem Art (right). 8:05:23 HR=76 bpm, BQYC=468/72 mmhg, SpO2=89.0 %, Resp=14 B/min A BALLOON, 3.0 X 15MM NC EUPHORA 15MM over a WIRE, RUNTHROUGH NS FLOPPY .014 180CM 180CM in the CIRC 8:05:23 Mid was inflated using a 30 MALAIKA INDEFLATOR at 14 malaika for 20 sec. A BALLOON, 3.0 X 15MM NC EUPHORA 15MM over a WIRE, RUNTHROUGH NS FLOPPY .014 180CM 180CM in the CIRC 8:05:58 Mid was inflated using a 30 MALAIKA INDEFLATOR at 14 malaika for 10 sec. 8:06:30 Balloon Removed. 8:07:51 400 mcg NTG (IC) given in lab by Manohar Desai via Intra-coronary. 8:09:09 Wire removed 8:09:10 Catheter was removed 8:10:20 HR=78 bpm, MPVI=660/81 mmhg, SpO2=96 %, Resp=12 B/min 8:12:07 PERCLOSE, PRO GLIDE CLOSER DEVICE FR 6 placement in the Fem Art (right) 8:12:25 Case End 8:12:44 Sterile dressing applied to site 8:13:00 No case complications noted. 8:13:05 Bedside Report will be given. 8:13:06 Implantable Device card placed in patient's chart. 8:13:23 A Left Heart Cath was performed. 8:14:01 60 mg EFFIENT given in lab by Hitesh Steel RN via Oral. Ordered by Manohar Desai. 8:15:21 HR=72 bpm, YNCB=015/86 mmhg, SpO2=95.0 %, Resp=9 B/min 8:18:11 Vitals capture stopped. 8:21:18 Patient moved to stretcher End Study - Contrast Media Used In Study Contrast Total Opened (mL) Total Used (mL) Total Wasted (mL) Omnipaque 100 100 0 End Study - Maximum Contrast Load Max Contrast Load (mL) 375.0 End Study - Radiation Exposure Fluoro Time (minutes) 5.9 End Study - Patient Disposition Complications Transferred To Interventional Outcome No Telemetry Bed successful
[2017-04-03] MEDS ORDERED: PRASUGREL 10 MG TAB PO ONE (08:30)
[2017-04-03] MEDS ORDERED: ONDANSETRON HCL 4 MG/2 ML VIAL IV PUSH PRN (08:30)
[2017-04-03] MEDS ORDERED: MISC INFORMATION XX ONE (08:30)
[2017-04-03] MEDS ORDERED: ATROPINE SULFATE 1 MG/ML VIAL IV PUSH PRN (08:30)
[2017-04-03] MEDS: SODIUM CHLORIDE 0.9% FLUSH 10 ML FLUSH IV FLUSH SCH ×2 (09:00→20:45)
[2017-04-03] MEDS ORDERED: ASPIRIN EC 81 MG TABEC PO SCH (09:00)
[2017-04-03] MEDS: GABAPENTIN 300 MG CAP PO SCH ×3 (09:08→20:44)
[2017-04-03] MEDS: ATORVASTATIN 40 MG TAB PO SCH (09:08)
[2017-04-03] MEDS: PARoxetine HCL 20 MG TAB PO SCH (09:08)
[2017-04-03] MEDS: predniSONE 10 MG TAB PO SCH (09:08)
[2017-04-03] MEDS: PANTOPRAZOLE SOD 40 MG DELAYED RELEASE TAB PO SCH ×2 (09:08→20:45)
[2017-04-03] MEDS: METOPROLOL TARTRATE 25 MG TAB PO SCH ×2 (09:09→20:44)
[2017-04-03] MEDS: DOCUSATE SODIUM 50 MG/SENNA 8.6 MG TAB PO SCH ×2 (09:09→20:45)
[2017-04-03] MEDS: ASPIRIN 81 MG CHEW TAB PO SCH (09:09)
--- NOTE | 2017-04-03 10:13 | MA ---
cc: CCList DATE: 04/03/2017 DATE OF : 1945 PROCEDURE PERFORMED 1. Left heart catheterization. 2. Selective right and left coronary angiography. 3. Left ventriculogram. 4. Successful percutaneous coronary intervention/en to left circumflex artery. INDICATION [id number] access right transfemoral access. ANESTHESIA Moderate sedation 20 minutes. DESCRIPTION OF PROCEDURE Consent signed. The patient was brought into the cardiac picket [employer] in fasting state. The right groin was prepped and draped in sterile fashion using 1% lidocaine for local anesthesia a micropuncture kit a 5-Burkinan sheath was inserted into the right common femoral artery right common femoral artery angiography was performed to confirm position of the sheath then selective right and left coronary angiography was performed with a JR-4 and JL-4 diagnostic catheters. Angiography was taken in multiple views. The JR-4 diagnostic catheter was introduced into the ventricle over a wire. This was followed by pressure recordings, left ventricular pullback, identified the culprit lesion of the nonstaining to be in the left circumflex artery, amendable to PCI for which we prepared to fix. For this the a 5-Burkinan sheath was exchanged to a 6-Burkinan sheath. Heparin was given for IV anticoagulation the left main was engaged with an EBU 3.5 guide. The vessel was wired with a run -through wire which was anchored distally in the OM vessel then we direct stented the lesion with a 2.75 x 22 drug-eluting stent. The lesion was postdilated with a noncompliant 3-0 x 15 to high atmospheres. Final angiographic views revealed good stent apposition and expansion with JAMEE III flow and no residual stenosis. The patient tolerated the procedure well without complications. Estimated blood loss less than 30 cc total. The total contrast of 100. The right groin access site was closed with Perclose. The patient was loaded with effient after procedure. RESULTS LEFT VENTRICLE The left ventricular pressure was 146 over 11 with an LVEDP of 17. The aortic pressure was 144/70 with a mean of 100. There was no gradient upon pullback from the left ventricle to aorta the ventriculogram revealed. Hypokineses of the ventricle. Estimated ejection fraction of 35-40%. ANGIOGRAPHIC RESULTS 1. Right coronary artery. The right coronary artery is a dominant vessel giving off the PDA and posterolateral branch. It has a proximal 40% lesion and minimal luminal irregularities throughout, especially in the proximal segment of the right coronary artery. 2. The left main is patent with JAMEE III flow is giving off the left circumflex artery and the LAD. 3. The left anterior descending is a transapical vessel has minimal luminal irregularities throughout however, no significant obstruction beginning of two diagonal vessels which are patent with JAMEE III flow and nonobstructive coronary artery disease. 4. The left circumflex artery. The left circumflex artery has significant 90% lesion in its mid segment before the takeoff of the first OM vessel. CONCLUSION 1. Successful PCI / EN to left circumflex artery. 2. Depressed LV systolic function. 3. Elevated LVEDP. RECOMMENDATIONS The patient will go back to the step-down unit for post cath care. She will get IV hydration for the next 4 hours. Continue dual antiplatelet agent with aspirin and Effient as well as aggressive medical management for secondary prevention of CAD. The patient will have a formal 2D echo before discharge. MD SAURABH Rodriguez/ /8:24 AM /9:55 AM ALEM
--- NOTE | 2017-04-03 10:15 | HHI.PR ---
Subjective Remarks Follow-up on an NSTEMI. Patient went for cardiac catheter this morning with successful stent placement in her left circumflex. Denies any chest pain post catheter, no nausea. She denies ever being diagnosed with diabetes in the past. Patient states she is currently taking 5 mg 4 times a day of prednisone for her rheumatoid arthritis. Patient asked if she could still proceed with her possible spinal injection procedure next week for her low back pain. 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 Objective Vital Signs Date Time Temp Pulse Resp B/P (MAP) Pulse Ox O2 Delivery O2 Flow Rate FiO2 04/03/17 06:30 54 04/03/17 05:00 61 04/03/17 04:07 57 04/03/17 03:16 66 04/03/17 03:06 55 18 129/63 (85) 96 04/03/17 02:00 55 04/03/17 01:40 55 04/03/17 00:47 61 04/02/17 23:07 67 16 146/70 (95) 94 04/02/17 23:00 51 04/02/17 22:00 66 04/02/17 21:00 58 04/02/17 19:30 98.2 70 16 145/70 (95) 98 04/02/17 17:45 76 16 121/68 (85) 98 Room Air 04/02/17 17:15 83 16 141/65 (90) 98 Room Air 04/02/17 16:45 77 16 133/63 (86) 98 Room Air 04/02/17 16:30 90 180/78 04/02/17 16:15 78 16 145/67 (93) 97 Room Air 04/02/17 16:00 98 Room Air 04/02/17 16:00 98 Room Air 04/02/17 15:52 90 18 96 Room Air 04/02/17 15:45 97.9 99 16 199/93 (128) 96 I/O 04/02/17 04/02/17 04/02/17 04/03/17 04/03/17 04/03/17 07:00 15:00 23:00 07:00 15:00 23:00 Intake Total 480 ml Output Total 600 ml Balance -120 ml Intake Oral 480 ml Output Urine Total 600 ml Result Diagram: 04/03/1750 04/03/17649 Objective Remarks Heart sounds are regular rate and rhythm, no murmurs Unlabored breathing, clear lungs anteriorly, no acute distress, lying in bed, awake, alert A/P Assessment and Plan A/P: 1. NSTEMI: Cardiology following, status post left circumflex stent placement, continue aspirin, Effient, Lopressor, Lipitor 2. Hyperglycemia: BS 142, on chronic steroids. Following up on A1c, 3. HTN: Stable, continue Lopressor and home olmesartan 4. Rheumatoid Arthritis: Chronic. On Chronic Steroid therapy, will have nursing verify home dosing and restart them more appropriate dose as opposed to the 10 mg daily as ordered since admission 5. Chronic back pain - continue gabapentin 6. hypothyroidism - continue home synthroid 7. anxiety/depression - continue home paroxetine DVT Prophylaxis: Heparin Darryn Rosales MD Apr 03, 2017 10:15
[2017-04-03] MEDS: LOSARTAN 25 MG TAB PO SCH (12:07)
[2017-04-03] MEDS: LEVOTHYROXINE SODIUM 50 MCG TAB PO SCH (12:08)
[2017-04-03 12:22] LABS: HEMOGLOBIN A1a 1.4 %; HEMOGLOBIN A1b 0.8 %; HEMOGLOBIN Ao 84.2 %; HEMOGLOBIN F 1.1 %; HEMOGLOBIN LA1C 2.1 %; HEMOGLOBIN P3 3.9 %
--- NOTE | 2017-04-03 14:43 | EKG ---
Date Performed: 04/03/2017 Time Performed: 00:10:18 PTAGE: 71 years EKG: Sinus bradycardia Prolonged QT interval LVH with secondary repolarization abnormality Exten sive ST-T changes may be due to hypertrophy and/or ischemia Abnormal ECG Compared to the PREVIOUS TRACING from 04/02/17, no significant change DOCTOR: Shahab Acevedo Interpretating Date/Time 04/03/2017 14:41:40
--- NOTE | 2017-04-03 15:11 | EKG ---
Date Performed: 04/02/2017 Time Performed: 18:18:27 PTAGE: 71 years EKG: Sinus rhythm ST DEVIATION AND MARKED T-WAVE ABNORMALITY, CONSIDER LATERAL ISCHEMIA ST DEVIATION AND MODERATE T-WA VE ABNORMALITY, CONSIDER INFERIOR ISCHEMIA ABNORMAL ECG PREVIOUS TRACING : 04/02/2017 16.24 Compared to prior tracing no significant change DOCTOR: Shahab Acevedo Interpretating Date/Time 04/03/2017 15:10:04
--- NOTE | 2017-04-03 15:19 | EKG ---
Date Performed: 04/02/2017 Time Performed: 16:24:09 PTAGE: 71 years EKG: Sinus rhythm POSSIBLE LEFT ATRIAL ENLARGEMENT POSSIBLE ANTERIOR MYOCARDIAL INFARCTION ST DEVIATION AND MODERATE T -WAVE ABNORMALITY, CONSIDER LATERAL ISCHEMIA ST DEVIATION AND MODERATE T-WAVE ABNORMALITY, CONSIDER I NFERIOR ISCHEMIA ABNORMAL ECG PREVIOUS TRACING : 11/27/2005 13.33 Compared to prior tracing no significant change DOCTOR: Shahab Acevedo Interpretating Date/Time 04/03/2017 15:18:13
--- NOTE | 2017-04-03 15:25 | EKG ---
Date Performed: 04/02/2017 Time Performed: 15:57:19 PTAGE: 71 years EKG: Sinus rhythm ST DEVIATION AND MODERATE T-WAVE ABNORMALITY, CONSIDER LATERAL ISCHEMIA ST DEVIATION AND MODERATE T- WAVE ABNORMALITY, CONSIDER INFERIOR ISCHEMIA ABNORMAL ECG Compared to the PREVIOUS TRACING from 11/27/05, ST/T wave changes are more prominent DOCTOR: Shahab Acevedo Interpretating Date/Time 04/03/2017 15:24:17
[2017-04-04] VITALS (22 sets, daily range): BP systolic 130–160; BP diastolic 62–72; PULSE 45–70; RESP 18; TEMP 97.8–98; O2SAT 96–100
[2017-04-04] MEDS ORDERED: ACETAMINOPHEN/HYDROcodone 325 MG/10 MG TAB PO ONE (02:45)
[2017-04-04] MEDS: ALPRAZolam 0.5 MG TAB PO PRN ×2 (05:34→13:35)
[2017-04-04] MEDS: LEVOTHYROXINE SODIUM 50 MCG TAB PO SCH (05:34)
[2017-04-04 06:50] LABS: BICARBONATE 25.7 MEQ/L (21.0-32.0); POTASSIUM 3.6 MEQ/L (3.5-5.1)
[2017-04-04] MEDS: INSULIN ASPART SUPPLEMENTAL SCALE SQ SCH ×3 (08:00→16:11)
[2017-04-04] MEDS: ASPIRIN 81 MG CHEW TAB PO SCH (08:22)
[2017-04-04] MEDS: ATORVASTATIN 40 MG TAB PO SCH (08:22)
[2017-04-04] MEDS: PARoxetine HCL 20 MG TAB PO SCH (08:23)
[2017-04-04] MEDS: PANTOPRAZOLE SOD 40 MG DELAYED RELEASE TAB PO SCH (08:23)
[2017-04-04] MEDS: GABAPENTIN 300 MG CAP PO SCH (08:23)
[2017-04-04] MEDS: METOPROLOL TARTRATE 25 MG TAB PO SCH (08:23)
[2017-04-04] MEDS: LOSARTAN 25 MG TAB PO SCH (08:23)
[2017-04-04] MEDS: predniSONE 10 MG TAB PO SCH (08:24)
[2017-04-04] MEDS: SODIUM CHLORIDE 0.9% FLUSH 10 ML FLUSH IV FLUSH SCH (08:24)
[2017-04-04] MEDS: DOCUSATE SODIUM 50 MG/SENNA 8.6 MG TAB PO SCH (08:25)
[2017-04-04] MEDS: ACETAMINOPHEN/HYDROcodone 325 MG/5 MG TAB PO PRN ×3 (08:34→17:40)
[2017-04-04] MEDS ORDERED: PRASUGREL 10 MG TAB PO SCH (09:00)
--- NOTE | 2017-04-04 12:51 | PD.CARD.PN ---
Subjective Subjective Remarks Overnight had some confusion, has had similar before Has been seeing Dr. Singh per the Up and ambulating without problems No chest pain, SOB Objective Medications Current Medications Medications (Trade) Dose Ordered Sig/Landry Route Start Time Stop Time Status Last Admin Nitroglycerin/ Dextrose 250 ml @ 3 mls/hr TITRATE PRN IV 04/02/17 16:15 04/02/17 16:30 (NS Flush) 2 ml UNSCH PRN IV FLUSH 04/02/17 18:15 (NS Flush) 2 ml BID IV FLUSH 04/02/17 21:00 04/04/17 08:24 (Narcan Inj) 0.4 mg UNSCH PRN IV PUSH 04/02/17 18:15 (Milk Of Magnesia Liq) 30 ml Q12H PRN PO 04/02/17 18:15 (Senokot) 17.2 mg Q12H PRN PO 04/02/17 18:15 (Dulcolax Supp) 10 mg DAILY PRN RECTAL 04/02/17 18:15 (Lactulose Liq) 30 ml DAILY PRN PO 04/02/17 18:15 (Deltasone) 10 mg DAILY PO 04/03/17 09:00 04/04/17 08:24 Heparin Sodium/ Dextrose 250 ml @ 8 mls/hr TITRATE PRN IV 04/02/17 20:00 04/02/17 20:58 (Tylenol) 650 mg Q6H PRN PO 04/02/17 19:45 (Alloway 5-325 Mg) 1 tab Q4H PRN PO 04/02/17 19:45 04/04/17 08:34 (Dilaudid Pf Inj) 0.5 mg Q3H PRN IV PUSH 04/02/17 19:45 04/02/17 21:23 (Riri-Colace) 1 tab BID PO 04/02/17 21:00 04/03/17 09:09 (Xanax) 0.5 mg Q8H PRN PO 04/02/17 20:00 04/04/17 05:34 (Protonix) 40 mg BID PO 04/02/17 21:00 04/04/17 08:23 (Paxil) 40 mg DAILY PO 04/03/17 09:00 04/04/17 08:23 (D50w (Vial) Inj) 50 ml UNSCH PRN IV PUSH 04/02/17 20:00 (Glucagon Inj) 1 mg UNSCH PRN OTHER 04/02/17 20:00 (NovoLOG SUPPLEMENTAL SCALE) 1 ACHS SLIDING SCALE SQ 04/02/17 21:00 (Lipitor) 40 mg DAILY PO 04/03/17 09:00 04/04/17 08:22 (Lopressor) 12.5 mg Q12HR PO 04/02/17 21:00 04/04/17 08:23 (Aspirin Chew) 81 mg DAILY PO 04/03/17 09:00 04/04/17 08:22 (Effient) 10 mg DAILY PO 04/04/17 09:00 04/04/17 08:23 (Atropine Inj) 0.5 mg UNSCH PRN IV PUSH 04/03/17 08:30 (Zofran Inj) 4 mg Q4H PRN IV PUSH 04/03/17 08:30 (Synthroid) 50 mcg DAILY@0600 PO 04/03/17 09:00 04/04/17 05:34 (Cozaar) 25 mg DAILY PO 04/03/17 10:45 04/04/17 08:23 (Neurontin) 600 mg BID PO 04/03/17 21:00 04/04/17 08:23 Vital Signs / I&O Vital Signs Date Time Temp Pulse Resp B/P (MAP) Pulse Ox O2 Delivery O2 Flow Rate FiO2 04/04/17 12:00 45 04/04/17 11:32 98.0 50 18 132/63 (86) 96 04/04/17 11:00 46 04/04/17 10:00 46 04/04/17 09:00 47 04/04/17 08:00 53 04/04/17 07:23 97.9 59 18 147/63 (91) 100 04/04/17 07:00 55 04/04/17 06:06 46 04/04/17 05:02 49 04/04/17 04:04 50 04/04/17 03:16 97.8 54 18 160/72 (101) 97 04/04/17 03:16 51 04/04/17 02:55 55 04/04/17 01:44 50 04/04/17 00:01 47 04/03/17 23:26 77 04/03/17 23:26 98.0 50 17 139/66 (90) 98 04/03/17 22:09 64 04/03/17 21:07 76 04/03/17 20:45 54 04/03/17 19:27 97.6 55 17 118/59 (78) 95 04/03/17 19:20 55 04/03/17 18:00 61 04/03/17 17:00 54 04/03/17 16:00 53 04/03/17 15:29 98.1 53 16 132/63 (86) 96 04/03/17 15:00 47 04/03/17 14:00 55 04/03/17 13:00 63 I/O 04/03/17 04/03/17 04/03/17 04/04/17 04/04/17 04/04/17 07:00 15:00 23:00 07:00 15:00 23:00 Intake Total 480 ml 840 ml 480 ml Output Total 600 ml Balance -120 ml 840 ml 480 ml Intake Oral 480 ml 840 ml 480 ml Output Urine Total 600 ml # Voids 5 5 # Bowel Movements 1 Physical Exam GENERAL: NAD, AAOx3 SKIN: Warm and dry. HEAD: Atraumatic. Normocephalic. EYES: Pupils equal and round. No scleral icterus. No injection or drainage. ENT: No nasal bleeding or discharge. Mucous membranes pink and moist. NECK: Trachea midline. No JVD. CARDIOVASCULAR: Regular rate and rhythm. RESPIRATORY: No accessory muscle use. Clear to auscultation. Breath sounds equal bilaterally. GASTROINTESTINAL: Abdomen soft, non-tender, nondistended. Hepatic and splenic margins not palpable. MUSCULOSKELETAL: Extremities without clubbing, cyanosis, or edema. No obvious deformities. Right femoral with mild ecchymosis, no hematoma, no bruit. Distal pulses intact NEUROLOGICAL: Awake and alert. No obvious cranial nerve deficits. Motor grossly within normal limits. Five out of 5 muscle strength in the arms and legs. Normal speech. PSYCHIATRIC: Appropriate mood and affect; insight and judgment normal. Laboratory Laboratory Tests Test 04/04/17 05:22 Blood Urea Nitrogen 15 MG/DL Creatinine 0.76 MG/DL Random Glucose 84 MG/DL Calcium Level 8.6 MG/DL Sodium Level 137 MEQ/L Potassium Level 3.6 MEQ/L Chloride Level 101 MEQ/L Carbon Dioxide Level 25.7 MEQ/L Anion Gap 10 MEQ/L Estimat Glomerular Filtration Rate 75 ML/MIN Assessment and Plan Problem List: (1) CAD (coronary artery disease) ICD Codes: I25.10 - Atherosclerotic heart disease of [place] coronary artery without angina pectoris (2) NSTEMI (non-ST elevated myocardial infarction) ICD Codes: I21.4 - Non-ST elevation (NSTEMI) myocardial infarction (3) Rheumatoid arthritis ICD Codes: M06.9 - Rheumatoid arthritis Status: Acute (4) HTN (hypertension) ICD Codes: I10 - Essential (primary) hypertension (5) Hyperlipidemia ICD Codes: E78.5 - Hyperlipidemia, unspecified Status: Acute Assessment and Plan 1) CAD/NSTEMI s/p CONCHIS ([id number]) to LCx Con't ASA/Effient Cozaar/Lipitor/Lopressor 2) Bradycardia Asymptomatic Heart rate increases when up and walking Will continue on BB for now, if concerns for symptoms with bradycardia will stop 3) Plan echo today If no concerns, can be discharged for follow up with Dr. Johnson outpatient Shahab Acevedo DO Apr 04, 2017 12:51
[2017-04-04] MEDS ORDERED: ASPI81 PO (14:48)
[2017-04-04] MEDS ORDERED: PRAS10TA PO (14:48)
[2017-04-04] MEDS ORDERED: ATOR40TA16 PO (14:48)
--- NOTE | 2017-04-04 14:50 | HHI.DCPOC ---
Discharge Care Plan Diagnosis: (1) NSTEMI (non-ST elevated myocardial infarction) Goals to Promote Your Health * To prevent worsening of your condition and complications * To maintain your health at the optimal level Directions to Meet Your Goals Take your medications as prescribed Follow your dietary instruction Follow activity as directed Keep your appointments as scheduled Take your immunizations and boosters as scheduled If your symptoms worsen call your PCP, if no PCP go to Urgent Care Center or Emergency Room Smoking is Dangerous to Your Health. Avoid second hand smoke Call the 24-hour hour crisis hotline for domestic abuse at Darryn Rosales MD Apr 04, 2017 14:50
[2017-04-04] MEDS ORDERED: PRED1 PO (17:23)
[2017-04-04] MEDS ORDERED: METO25TA3 PO (17:25)
--- NOTE | 2017-04-04 17:25 | HHI.DS ---
Discharge Summary Admission Date Apr 02, 2017 at 18:11 Discharge Date: Apr 04, 2017 Admitting Diagnosis ACS/DE (1) NSTEMI (non-ST elevated myocardial infarction) ICD Code: I21.4 - Non-ST elevation (NSTEMI) myocardial infarction (2) HTN (hypertension) ICD Code: I10 - Essential (primary) hypertension (3) Hyperglycemia ICD Code: R73.9 - Hyperglycemia, unspecified (4) Rheumatoid arthritis ICD Code: M06.9 - Rheumatoid arthritis, unspecified (5) Tobacco abuse ICD Code: Z72.0 - Tobacco use Procedures Left heart catheterization Brief History - From Admission This is a 71-year-old female with a PMH of HTN, Hypothyroidism, Asthma and Rheumatoid Arthritis on Chronic Steroids who presented to the ER w/ c/o chest pain for approx 4-5 days. States pain has been intermittent, however today pain more constant. Following w/ Dr. Branch as outpatient. Denies fever, chills, cough or SOB. On arrival, BP 199/93, HR 99, O2 sat 96% on RA, Afebrile. CBC unremarkable. Chemistry essentially unremarkable except for hyperglycemia, BS 142. Troponin 0.79. EKG with no acute ischemia. BNP 307. INR 1.0. CXR with no acute findings. Dr. Johnson consulted by ER physician, pt started on Heparin/NTG gtt in ER. Plan for Cath in am if chest pain persists. CBC/BMP: 04/03/17 0650 04/04/17 0522 Significant Findings Laboratory Tests Test 04/02/17 16:05 04/02/17 21:42 04/03/17 00:20 04/03/17 06:50 Neutrophils (%) (Auto) 71.2 % (16.0-70.0) Bedside Glucose 142 MG/DL (60-95) Calcium Level 8.3 MG/DL (8.5-10.1) Troponin I 0.79 NG/ML (0.02-0.05) 2.29 NG/ML (0.02-0.05) 2.73 NG/ML (0.02-0.05) B-Type Natriuretic Peptide 307 PG/ML (0-100) Red Blood Count 3.89 MIL/MM3 (4.00-5.30) 3.84 MIL/MM3 (4.00-5.30) Hemoglobin 11.1 GM/DL (11.6-15.3) 11.1 GM/DL (11.6-15.3) Hematocrit 34.6 % (35.0-46.0) 33.9 % (35.0-46.0) Activated Partial Thromboplast Time 36.5 SEC (24.3-30.1) 43.1 SEC (24.3-30.1) Estimat Glomerular Filtration Rate 71 ML/MIN (>89) Test 04/04/17 05:22 Estimat Glomerular Filtration Rate 75 ML/MIN (>89) PE at Discharge Heart sounds are regular rate and rhythm, no murmurs, Hospital Course Patient was admitted, underwent left heart catheter which warranted a stent in the left circumflex artery. Tolerated recovery phase well. Patient was counseled extensively on the importance of dual antiplatelet therapy and that she should only consider transiently discontinuing any one of them under the discretion and supervision of her kiln repairer. Her echocardiogram showed an EF of 45-50%. Patient has met maximum benefit from hospitalization and is clinically stable for discharge. Pt Condition on Discharge: Stable Discharge Disposition: Discharge Home Discharge Time: > 30 minutes Discharge Instructions Follow up Referrals: Cardiology - 2 Weeks with Manohar Desai MD PCP Follow-up - 1 Week New Medications: Aspirin (Tgt Aspirin) 81 Mg Chw 81 MG PO DAILY for Blood Clot Prevention, #30 EA Atorvastatin (Atorvastatin) 40 Mg Tab 40 MG PO DAILY for heart health, #30 TAB Metoprolol Tartrate (Metoprolol Tartrate) 25 Mg Tab 12.5 MG PO Q12HR for heart health, #60 TAB Prasugrel (Effient) 10 Mg Tab 10 MG PO DAILY for Stent Maintenance, #30 TAB Continued Medications: Acyclovir (Acyclovir) 400 Mg Tab 400 MG PO 5 TIMES A DAY for Mgmt Viral Infection, #30 TAB 1 Refill Adalimumab 2-Pack Inj (Humira 2-Pack Inj) 40 Mg/0.8 Ml Syr 40 MG SQ Q7D, #2 KIT Adalimumab 2-Pack Inj (Humira 2-Pack Inj) 40 Mg/0.8 Ml Syr 40 MG SQ Q14D, #1 KIT 0 Refills Alprazolam (Xanax) 0.5 Mg Tab 0.5 MG PO Q8H PRN for ANXIETY, TAB 0 Refills Epinephrine Inj (Epipen 2-Isael Inj) 0.3 Mg/0.3 Ml Pfpen 0.3 MG IM ONCE PRN for ALLERGIC REACTION, #1 PACK 0 Refills Gabapentin (Gabapentin) 600 Mg Tab 600 MG PO TID, #270 TAB 1 Refill Levothyroxine (Levothyroxine) 50 Mcg Tab 50 MCG PO DAILY for Thyroid, #90 TAB 1 Refill Olmesartan (Benicar) 20 Mg Tab 10 MG PO DAILY for Blood Pressure Management, #30 TAB 5 Refills Pantoprazole (Protonix) 40 Mg Tab 40 MG PO BID for Reflux, #90 TAB 1 Refill Paroxetine (Paroxetine) 40 Mg Tab 40 MG PO DAILY, #90 TAB 1 Refill Prednisone (Prednisone) 1 Mg Tab 1 MG PO QID, #20 TAB 0 Refills Discontinued Medications: Prednisolone (Millipred) 5 Mg Tab 7 MG PO, #90 TAB Prednisolone, Micronized (Prednisolone) 5 Gm Powder 7 MG DAILY Darryn Rosales MD Apr 04, 2017 17:25
--- NOTE | 2017-04-04 17:49 | ECHRPT ---
Indication: cad CONCLUSIONS The left ventricular systolic function is mildly reduced with an estimated ejection fraction in the range of 45- 50%. Normal left ventricular size. Mild mitral valve regurgitation. myxomatous mv leaflets There is mild tricuspid valve regurgitation. The estimated pulmonary arterial pressure is 29.2 mmHg. There is a small pericardial effusion present. .9cm BP: / HR: Rhythm: MEASUREMENTS (Male / Female) Normal Values Technical Quality:Good 2D ECHO LV Diastolic Diameter PLAX 4.3 cm 4.2 - 5.9 / 3.9 - 5.3 cm LV Systolic Diameter PLAX 3.8 cm IVS Diastolic Thickness 1.5 cm 0.6 - 1.0 / 0.6 - 0.9 cm LVPW Diastolic Thickness 1.0 cm 0.6 - 1.0 / 0.6 - 0.9 cm LV Relative Wall Thickness 0.6 RV Internal Dim ED PLAX 2.2 cm M-MODE Aortic Root Diameter MM 3.1 cm LA Systolic Diameter MM 3.7 cm LA Ao Ratio MM 1.2 AV Cusp Separation MM 2.1 cm DOPPLER Mitral E Point Velocity 37.0 cm/s Mitral A Point Velocity 59.7 cm/s Mitral E to A Ratio 0.6 LV E' Lateral Velocity 6.6 cm/s Mitral E to LV E' Lateral Ratio 5.6 LV E' Septal Velocity 6.0 cm/s Mitral E to LV E' Septal Ratio 6.1 TR Peak Velocity 219.0 cm/s TR Peak Gradient 19.2 mmHg Right Atrial Pressure 10.0 mmHg Pulmonary Artery Systolic Pressu 29.2 mmHg Right Ventricular Systolic Press 29.2 mmHg FINDINGS LEFT VENTRICLE The left ventricular systolic function is mildly reduced with an estimated ejection fraction in the range of 45- 50%. Normal left ventricular size. RIGHT VENTRICLE Normal right ventricular size and systolic function. LEFT ATRIUM The left atrial size is normal. RIGHT ATRIUM The right atrial size is normal. ATRIAL SEPTUM Normal atrial septal thickness without atrial level shunting by limited color doppler interrogation. AORTA The aortic root and proximal ascending aorta are normal in size on limited imaging. MITRAL VALVE Mild mitral valve regurgitation. Structurally normal mitral valve. AORTIC VALVE Trileaflet aortic valve. No aortic valve stenosis or regurgitation. TRICUSPID VALVE There is mild tricuspid valve regurgitation. The estimated pulmonary arterial pressure is 29.2 mmHg. Structurally normal tricuspid valve. PULMONARY VALVE No pulmonary valve regurgitation or stenosis. VESSELS The inferior vena cava is normal in size. PERICARDIUM There is a small pericardial effusion present. .9cm Memo Whitmore MD, FACC, FSCAI (Electronically Signed) Final Date:04 April 2017 17:49
== END 2017-04-04 18:30 | disposition home or self-care (01) | DRG 247 ==
LOC: NEPC 15:42 → NEDA 18:11 → HCPC 19:38
PROVIDERS: ADMIT Hospitalist; ATTEND Hospitalist
PROC: 027034Z Dilation of Coronary Artery, One Artery with Drug-eluting Intraluminal Device, Percutaneous Approach (ICD-10-PCS; principal; 2017-04-03)
PROC: 4A023N7 Measurement of Cardiac Sampling and Pressure, Left Heart, Percutaneous Approach (ICD-10-PCS; 2017-04-03)
PROC: B2111ZZ Fluoroscopy of Multiple Coronary Arteries using Low Osmolar Contrast (ICD-10-PCS; 2017-04-03)
PROC: B2151ZZ Fluoroscopy of Left Heart using Low Osmolar Contrast (ICD-10-PCS; 2017-04-03)
DX: I21.4 Non-ST elevation (NSTEMI) myocardial infarction (principal); M06.9 Rheumatoid arthritis, unspecified; Z79.52 Long term (current) use of systemic steroids; R00.1 Bradycardia, unspecified; I10 Essential (primary) hypertension; J45.909 Unspecified asthma, uncomplicated; E03.9 Hypothyroidism, unspecified; R73.9 Hyperglycemia, unspecified; F17.200 Nicotine dependence, unspecified, uncomplicated; Z82.49 Family history of ischemic heart disease and other diseases of the circulatory system; I25.10 Atherosclerotic heart disease of native coronary artery without angina pectoris; E78.5 Hyperlipidemia, unspecified; G89.29 Other chronic pain; M54.5 Low back pain; F32.9 Major depressive disorder, single episode, unspecified; F41.9 Anxiety disorder, unspecified
CPT/HCPCS: 71010; 80048; 82310; 82435; 82550; 82552; 82565; 82947; 82948; 83036; 83735; 83880; 84132; 84295; 84484; 84520; 85025; 85027; 85610; 85730; 92928; 93005; 93306; 93458; 96374; 96375; C1725; C1760; C1769; C1874; C1887; C1893; G0269; J1170; J1644; J2250; J3010; J7030; J7512; Q9967